=== PATIENT | male | born 1970 | race Caucasian/White ===

== ENCOUNTER 2017-06-27 12:10 | Day surgery (SDC) | payer OTHER ==
[2017-06-27] VITALS (15 sets, daily range): BP systolic 129–186; BP diastolic 78–108; PULSE 56–74; RESP 12–20; O2SAT 96–100
[~2017-06-27] VITALS: Ht 193 cm; Wt 125.2 kg
--- NOTE | 2017-06-27 12:16 | ED.REPORT ---
HPI-Abd Pain M 40 and Over Date of Service Jun 27, 2017 ED Provider: History of Present Illness: pain in umbilicial hernia started this am, woke up and it was different, usually self reduces but not today. [place] [facility] [place] [facility], plans to return on Sunday, flying back. no nausea or vomiting. pain 7/10, normally no pain associated with hernia. hernia has been present for about 1.5 years. Has been working on losing weight. Lost over 100 lbs in the last year. Nursing Notes Stated Complaint: ABDOMINAL PAIN Chief Complaint: Male Abdominal Pain Nursing Notes Reviewed: Yes Allergies: Coded Allergies: No Known Allergies (Unverified , 06/27/17) No Active Prescriptions or Reported Meds General Time Seen by MD: 12:15 Chief Complaint Abdominal pain Hx Obtained From: Patient Sudden in Onset?: Yes Onset Occurred: 5 - 8 hours ago Symptom Duration: Since onset Severity: Current: Pain level 7 out of 10 Additional Notes: pain at site of umbilical hernia, hernia is not reducible, painful to touch, increased vascularity but no erthyma noted Past Medical History Past Medical History Reports: Hypertension, Denies: Asthma, Diabetes mellitus Past Surgical History knee Smoking History Former Smoker (quit in 2008) Social History Alcohol Use: Denies alcohol use Drug Use: Denies drug use Other Social History: Occupation lives in [facility]. 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 Initial Vital Signs Vital Signs (First) Date Time Temp Pulse Resp B/P Pulse Ox O2 Delivery O2 Flow Rate FiO2 06/27/17 12:13 36.5 58 18 100 Room Air 06/27/17 15:34 138/98 Head / Eyes: Atraumatic, Normocephalic, PERRL Skin: Warm, Dry, No cyanosis Psychiatric: Mood/affect normal, Behavior normal, Normal thought content General/Constitutional: Awake, Alert, No acute distress, Well appearing, Well developed, Well hydrated, Well nourished, Cooperative, Not toxic appearing Respiratory / Chest: Atraumatic, Breath sounds NL, Breath sounds = bilat, No respiratory distress, No rales, No rhonchi, No wheezing Cardiovascular: Heart rate NL, Regular rhythm, Heart sounds NL, No gallop, No murmurs, No rubs, Cap refill not delayed, Peripheral circulation NL tender at hernia site. pain increases with flexion of abd Back: Atraumatic, Inspection NL, Full range of motion, Painless range of motion Head / Eyes: Atraumatic, Normocephalic, PERRL, EOMI ENT: Atraumatic, Airway patent, Mucous membranes moist, Pharynx NL Interpretation & Diagnostics Lab Results Interpretation Result Diagram: 06/27/17 1258 06/27/17 1258 Test 06/27/17 12:58 06/27/17 13:15 White Blood Count 5.8th/mm3 (3.8-10.1) Red Blood Count 4.90mil/mm3 (4.40-5.80) Hemoglobin 14.1g/dL (13.8-17.2) Hematocrit 41.9% (41.0-50.0) Mean Corpuscular Volume 85.5fL (81-100) Mean Corpuscular Hemoglobin 28.8pg (27.0-35.0) Mean Corpuscular Hemoglobin Concent 33.7% (32.0-37.0) Red Cell Distribution Width 13.4% (12.3-15.4) Platelet Count 147bil/L (150-400) Neutrophils (%) (Auto) 60.3% (40-74) Lymphocytes (%) (Auto) 23.8% (14-46) Monocytes (%) (Auto) 9.5% (4-12) Eosinophils (%) (Auto) 5.7% (0-5) Basophils (%) (Auto) 0.5% (0-3) Sodium Level 141mEq/L (134-144) Potassium Level 4.1mEq/L (3.5-5.2) Chloride Level 102mEq/L (97-108) Carbon Dioxide Level 24mmol/L (18-29) Blood Urea Nitrogen 9mg/dL (6-24) Creatinine 0.77mg/dL (0.76-1.27) Estimat Glomerular Filtration Rate 116mL/min (>59) Glucose Level 109mg/dL (60-99) Lactic Acid Level 0.8mmol/L (0.4-2.0) Calcium Level 9.1mg/dL (8.5-10.1) Total Bilirubin 0.6mg/dL (0.0-1.2) Aspartate Amino Transf (AST/SGOT) 31U/L (0-50) Alanine Aminotransferase (ALT/SGPT) 32U/L (0-44) Alkaline Phosphatase 41U/L (25-150) Total Protein 6.3g/dL (6.4-8.4) Albumin 4.3g/dL (3.4-5.0) Urine Color Straw (YELLOW) Urine Appearance Hazy (CLEAR,HAZY) Urine pH 6.5 (5.0-8.0) Urine Specific [place] 1.005 (1.003-1.035) Urine Protein Negativemg/dL (NEG,TRACE) Urine Glucose (UA) Negativemg/dL (NEGATIVE) Urine Ketones Negativemg/dL (NEGATIVE) Urine Occult Blood Negative (NEGATIVE) Urine Nitrite Negative (NEGATIVE) Urine Bilirubin Negative (NEGATIVE) Urine Urobilinogen Normalmg/dL (NORMAL) Urine Leukocyte Esterase Negative (NEGATIVE) Urine RBC 0-2/hpf (0-2) Urine WBC 0-5/hpf (0-5) Urine Epithelial Cells Occasional/hpf (NONE-MOD) Urine Crystals None seen (NONE SEEN) Urine Bacteria None/hpf (NONE-FEW) Urine Hyaline Casts None/lpf (NONE) Urine Granular Casts None seen (NONE SEEN) Urine Waxy Casts None seen (NONE SEEN) Urine Red Blood Cell Casts None seen (NONE SEEN) Urine White Blood Cell Casts None seen (NONE SEEN) Urine Mucus None seen (None Seen) Urine Trichomonas None seen (NONE SEEN) Urine Yeast None (NONE SEEN) Urinalysis Comment None Urine Culture Reflexed Not indicated Lab Results Interpretation: urine is negative CT Abd / Pelvis Interpretation PROCEDURE: CT ABDOMEN AND PELVIS WITH CONTRAST ([id number]) INDICATIONS: 46 year-old male with abdominal pain and possible incarcerated hernia. TECHNIQUE: After the administration of intravenous contrast, 5 mm thick sections acquired from the diaphragm to the symphysis with the patient performing Valsalva maneuver. 5 mm coronal and sagittal reformats were acquired. For radiation dose reduction, the following was used: automated exposure control, adjustment of mA and/or kV according to patient size. COMPARISON: None. FINDINGS: Image quality: Excellent. ABDOMEN: Lung bases: Lung bases are clear. Heart size is normal. Solid organs: Liver and spleen are normal in size. 1.7 cm anterior right hepatic lobe simple cyst is present, as well as localized fatty infiltration along the falciform ligament. Gallbladder wall thickness is normal. Biliary system is non dilated. Pancreas enhances normally. No adrenal nodules. Kidneys demonstrate normal size, without hydronephrosis. 2.3 cm right renal parapelvic cyst is present. Peritoneum and bowel: Bowel loops demonstrate normal wall thickness and caliber. The appendix is normal. No free fluid or air. Nodes and vessels: No retroperitoneal or mesenteric adenopathy by size criteria. Aorta and inferior vena cava are normal in size. Miscellaneous: 6.5 x 5.5 cm fat-containing periumbilical ventral hernia is present, without inflammatory fat stranding to suggest strangulation. PELVIS: Genitourinary: Bladder wall thickness is normal. Prostate gland is normal in size. Miscellaneous: No inguinal hernias or adenopathy. Bones: No suspicious bony lesions. No vertebral body compression fractures. Bilateral L5 pars defects are present, with minimal L5-S1 spondylolisthesis. IMPRESSION: 1. 6.5 x 5.5 cm periumbilical ventral hernia contains only omental fat, without findings to suggest strangulation. 2. Bilateral L5 pars defects, with grade 1 L5-S1 spondylolisthesis. 3. 1.7 cm right hepatic lobe simple cyst, as well as 2.3 cm right renal parapelvic cyst. Dictated by: Adriano Alonzo M.D. on 06/27/2017 at 14:04 Approved by: Adriano Alonzo M.D. on 06/27/2017 at 14:13 Re-Eval/Medical Decision Med Decision/Clinical Course 46 year old male [place] [facility] [place], who is staying on [facility], presents for evualation of pain at hernia site. Hernia is tender to touch with increased vascularity. Unable to reduce hernia. Hernia self reduces after the administration of pain medication. Patient has a concern it may incerate again and he will be on [facility]. Desires surgery today. Discussed with Dr. Gregory, will attempt to get him on the schedule around 6 pm today. No sign of inceration after hernia reduced. No sign of appy. Discharge & Departure Primary Impression: Hernia, umbilical Obstruction and gangrene presence: without obstruction or gangrene Qualified Code: K42.9 - Umbilical hernia without obstruction or gangrene Disposition: ADMITTED TO HOSPITAL Vital Signs - All Vital Signs Date Time Temp Pulse Resp B/P Pulse Ox O2 Delivery O2 Flow Rate FiO2 06/27/17 15:34 74 18 138/98 97 Room Air 06/27/17 12:13 36.5 58 18 100 Room Air EDSupervising Provider for APC: Kane Gonzalez MD copies to: OTHER,PHYSICIAN Laura Bender Jun 27, 2017 12:16
[2017-06-27] MEDS ORDERED: Ondansetron 2 mg/mL 2 mL Inj IVPUSH ONE (12:30)
[2017-06-27] MEDS ORDERED: HYDROmorphone 0.5 mg/0.5 mL iSecure Syringe IVPUSH ONE (12:30)
[2017-06-27] MEDS ORDERED: 0.9% Sodium Chloride 1,000 ML IV ONE (12:30)
[2017-06-27 13:06] LABS: BASOPHILS % (AUTO) 0.5 % (0-3); EOSINOPHILS % (AUTO) 5.7 % (0-5); MONOCYTES % (AUTO) 9.5 % (4-12); Mean Corpuscular Hemoglobin 28.8 pg (27.0-35.0); Mean Corpuscular Volume 85.5 fL (81-100); NEUTROPHILS % (AUTO) 60.3 % (40-74); Platelet Count 147 bil/L (150-400)
[2017-06-27 13:36] LABS: APPEARANCE,URINE HAZY (CLEAR,HAZY); COLOR,URINE STRAW (YELLOW)
[2017-06-27 13:37] LABS: OCCULT BLOOD,URINE NEGATIVE (NEGATIVE); PH,URINE 6.5 (5.0-8.0); UROBILINOGEN,URINE NORMAL (NORMAL)
[2017-06-27] MEDS ORDERED: Remifentanil 1 mg/3 mL Inj ONE (15:46)
[2017-06-27] MEDS ORDERED: Glycopyrrolate 0.2 MG/ML 1mL Inj ONE (15:46)
[2017-06-27] MEDS ORDERED: Neostigmine 1 mg/mL 10 mL Inj ONE (15:46)
[2017-06-27] MEDS ORDERED: fentaNYL-PF 50 mCg/mL 2 mL Inj ONE (15:46)
[2017-06-27] MEDS ORDERED: Rocuronium 10 mg/mL 5 mL Inj ONE (15:46)
[2017-06-27] MEDS ORDERED: Ondansetron 2 mg/mL 2 mL Inj ONE (15:46)
[2017-06-27] MEDS ORDERED: Dexamethasone 4 mg/mL Inj ONE (15:46)
[2017-06-27] MEDS ORDERED: HYDROmorphone 1 mg/mL Inj ONE (15:46)
[2017-06-27] MEDS ORDERED: Propofol 10,000 mCg/mL 20 mL Inj ONE (15:46)
[2017-06-27] MEDS ORDERED: MetoCLOpramide 5 mg/mL 2 mL Inj ONE (15:46)
--- NOTE | 2017-06-27 16:26 | DRSVH ---
PROCEDURE: CT ABDOMEN AND PELVIS WITH CONTRAST ([id number]) INDICATIONS: 46 year-old male with abdominal pain and possible incarcerated hernia. TECHNIQUE: After the administration of intravenous contrast, 5 mm thick sections acquired from the diaphragm to the symphysis with the patient performing Valsalva maneuver. 5 mm coronal and sagittal reformats wer e acquired. For radiation dose reduction, the following was used: automated exposure control, adjus tment of mA and/or kV according to patient size. COMPARISON: None. FINDINGS: Image quality: Excellent. ABDOMEN: Lung bases: Lung bases are clear. Heart size is normal. Solid organs: Liver and spleen are normal in size. 1.7 cm anterior right hepatic lobe simple cyst i s present, as well as localized fatty infiltration along the falciform ligament. Gallbladder wall thi ckness is normal. Biliary system is non dilated. Pancreas enhances normally. No adrenal nodules. Kidneys demonstrate normal size, without hydronephrosis. 2.3 cm right renal parapelvic cyst is presen t. Peritoneum and bowel: Bowel loops demonstrate normal wall thickness and caliber. The appendix is no rmal. No free fluid or air. Nodes and vessels: No retroperitoneal or mesenteric adenopathy by size criteria. Aorta and inferior vena cava are normal in size. Miscellaneous: 6.5 x 5.5 cm fat-containing periumbilical ventral hernia is present, without inflammat ory fat stranding to suggest strangulation. PELVIS: Genitourinary: Bladder wall thickness is normal. Prostate gland is normal in size. Miscellaneous: No inguinal hernias or adenopathy. Bones: No suspicious bony lesions. No vertebral body compression fractures. Bilateral L5 pars defe cts are present, with minimal L5-S1 spondylolisthesis. IMPRESSION: 1. 6.5 x 5.5 cm periumbilical ventral hernia contains only omental fat, without findings to suggest s trangulation. 2. Bilateral L5 pars defects, with grade 1 L5-S1 spondylolisthesis. 3. 1.7 cm right hepatic lobe simple cyst, as well as 2.3 cm right renal parapelvic cyst. Dictated by: Adriano Alonzo M.D. on 06/27/2017 at 14:04 Approved by: Adriano Alonzo M.D. on 06/27/2017 at 14:13
[2017-06-27] MEDS ORDERED: Alum-Mag Hydrox-Simeth 30 mL Suspension PO PRN (16:40)
[2017-06-27] MEDS ORDERED: Ondansetron 2 mg/mL 2 mL Inj IVPUSH PRN ×3 (16:40→20:30)
[2017-06-27] MEDS ORDERED: HYDROmorphone 1 mg/mL Inj IVPUSH PRN ×2 (16:45→19:15)
[2017-06-27] MEDS: Dextrose 5% Lactated Ringer's 1,000 ML IV SCH (16:45)
--- NOTE | 2017-06-27 16:55 | PCM.HPSURG ---
Subjective Date of Service: Jun 27, 2017 Referring Provider: Admitting Physician: Stephy Gregory MD Primary Care Physician: Nopcp Attending Physician: Stephy Gregory MD Chief Complaint Umbilical hernia History of Present Illness Mr. Vuong is a 46 year old male who is otherwise healthy and presents with concern for a strangulated umbilical hernia. The patient reports he first noticed a bulge just superior to his umbilicus after experiencing a popping sensation during exercise 18 months ago. His family practitioner diagnosed him with a hernia and he has elected to not have it surgically repaired because it has been argely asymptomatic. The hernia has grown somewhat in size over time, but has only caused pain twice -- both of these episodes were self-limited and resolved quickly by laying in a supine position for less than 20 minutes. Today , the patient awoke with soreness at his hernia site, which is not usual for him. The soreness gave way to gradually worsening sharp pain. Additionally, he noticed the hernia became larger, very firm, and tender. He was unable to reduce the hernia with manual palpation or laying supine. Therefore, he sought medical treatment. He was seen at an outside facility on [facility], where the hernia could not be reduced by the medical team. He was therefore transferred to [facility] in anticipation of requiring surgical intervention. However , after being given dilaudid, he was able to fall asleep and the hernia spontaneously reduced. He states that he now feels back to normal, as if there hadn't even been any issue today, and denying any current abdominal pain. He has had no associated nausea, vomiting, fevers, chills, skin changes, or difficulty urinating today. He had a normal bowel movement early this morning but has not passed any flatus since. Of note, the patient is visiting family on [facility]. He is from [place], [place]. Allergy Allergies: Coded Allergies: No Known Allergies (Unverified , 06/27/17) Medications Home medications No home medications Past Surgical History Operations: Left knee arthroscopy Social History Occupation: network security consultant Hx Alcohol Use: Yes (Rarely) Hx Substance Use: No Hx Tobacco Use: Yes (Former smoker) PMH HEENT History History of ENT Problems?: No Cardiovascular History History of Heart Problems?: No Respiratory History of Respiratory Problem: No Neurological History Hx Neurologic Problems?: No Gastrointestinal History HX of GI Problems?: No Genitourinary History Hx of Gu Problems?: No Female/Male History Reproductive History Male: Denies: Prostate Problems Scrotal Mass Musculoskeletal History Hx Musculoskeletal Problems?: No Psycho Social History Hx of Psycho/Social Problems?: No Other History Hx Any Other Health Problems?: No Other History: Denies:: Cancer Hospitalization Thyroid Disease Diabetes: No Social History Hx Alcohol Use: Yes (Rarely)Hx Substance Use: No Smoking Status: Former Smoker Living Arrangement: with Family Family History Family History: Reviewed and non-contributory to the current problem H&P Surgical Exam Exam General: Alert, Oriented X3, Cooperative, No Acute Distress Neck: Supple Lungs: Clear to Auscultation, Normal Air Movement Heart: Exam Unremarkable, Regular Rate/Rhythm, Normal S1, Normal S2, No Murmurs /Rubs/Gallops Abdomen: Other (Supraumbilical hernia is easily reducible, soft, nontender, with likely some incarcerated omental/pre-peritoneal fat palpated. Abdomen is otherwise soft, nontender, and nondistended. No identifiable incisional scars.) Extremities: Warm Neuro: Grossly Neurologically Intact Diagnostics: 1. 6.5 x 5.5 cm periumbilical ventral hernia contains only omental fat, without findings to suggest strangulation. Assessment & Plan Assessment 46 year old male with an umbilical hernia which was incarcerated/strangulated today and has since spontaneously reduced. He is hemodynamically stable, without a leukocytosis or elevated lactic acid, and his abdominal exam is benign. Pain Management: The patient and I have discussed then natural history of umbilical hernias. Given his severe symptoms today, there is concern that his bowel may have been strangulated for a short time. Therefore, I have recommended that we proceed to the operating room for a diagnostic laparoscopy and repair of his umbilical hernia with mesh. This will reassure us that there is no compromised bowel and will eliminate the risk of a similar event happening while traveling back to [place]. The technical and convalescent aspects of the procedure, as well as the risks, benefits, and alternatives were discussed. He understands the risk of bleeding, infection, and damage to adjacent structures and has provided his consent to proceed to the OR. We will work toward a convenient time. In the interim he will remain NPO on [facility]. Case discussed with Dr. Gregory. Attending Statement: I examined and interviewed this patient and agree with the note as dictated above. We discussed the risks and benefits of the operation, including risks of recurrence, infection, bleeding, and injury to surrounding structures. We also discussed the possibility that mesh may not be used depending on the appearance of intra-abdominal viscera. The patient understands and elects to proceed. Anders Peacock MD Jun 27, 2017 16:55 Stephy Gregory MD Jun 27, 2017 20:28
[2017-06-27] MEDS: Lactated Ringer's 1,000 ML IV SCH ×3 (18:30→21:10)
[2017-06-27] MEDS ORDERED: Lactated Ringer's 500 ML IV PRN (19:14)
--- NOTE | 2017-06-27 19:14 | NUR ---
Arrival to 1031/transport to OR Pt transported to room 1031 at 1700, VSS, no complaints of pain or nausea, steady transfer to bed from independently. Consent signed in OR and plan to have hernia repair this evening. OR transport at 1820. All clothing removed and in gown and pt voided prior to departure. Pt denies having any questions or concerns at this time.
[2017-06-27] MEDS ORDERED: Phenylephrine 10,000 mCg/mL Inj IVPUSH PRN (19:15)
[2017-06-27] MEDS ORDERED: EPHEDrine Sulfate 50 mg/mL Inj IVPUSH PRN (19:15)
[2017-06-27] MEDS ORDERED: Atropine 0.4 mg/mL Inj IVPUSH PRN (19:15)
[2017-06-27] MEDS ORDERED: Labetalol 5 mg/mL 20 mL Inj IV PRN (19:15)
[2017-06-27] MEDS ORDERED: MetoCLOpramide 5 mg/mL 2 mL Inj IVPUSH PRN ×2 (19:15→20:30)
--- NOTE | 2017-06-27 19:17 | PCM.HPANE ---
Patient Data Date of Service: Jun 27, 2017 (183) Surgeon Admitting Provider:Stephy Gregory MD Attending Provider:Stephy Gregory MD Primary Care Physician:[place] Other Provider: Reason for Visit Incarcerated Hernia Ht/WT & BMI Height (Feet): 6 Height (Inches): 4.00 Weight (Kilograms): 124.700 Body Mass Index 33.48 Allergies Coded Allergies: No Known Allergies (Unverified , 06/27/17) Past Anesthesia History Anesthesia History: Denies:: Abnormal Airway, Anesthesia Reactions, Difficult Intubation, Fam Anesthesia Reaction, Fam Malignant Hypertherm, Malignant Hyperthermia Diabetes History Hx Diabetes?: No MRSA MRSA: No Medications No Active Prescriptions or Reported Meds History History of ENT Problems?: No HEENT History: Denies:: Abnormal Airway Cataracts Difficult Intubation Dysphagia Glaucoma Hearing Problem Sinus Problem TMJ Denture Type: None Teeth Condition: Within Normal Limits Hx of Heart Problems?: No Cardiovascular History: Denies:: AICD Abdominal Aortic Aneurism Atrial Fibrillation Cardiac Surgery Chest Pain Congestive Heart Failure Coronary Artery Disease Edema Heart Murmur Hypertension Irregular Heartbeat Pacemaker Peripheral Vascular Rheumatic Fever Thrombophlebitis Valvular Heart Disease Hx of Respiratory Problem?: No Respiratory History: Denies:: Asthma COPD Chest Surgery Cough Dyspnea Emphysema Hemoptysis Oxygen Administration Pneumonia Pulmonary Embolism Tuberculosis Use of C-PAP Machine Use of Inhalers / NEBS Hx Neurologic Problems?: No Neurological History: Denies:: Alzheimer's Disease CVA Dementia Dizziness Headaches Multiple Sclerosis Parkinson's Disease Peripheral Neuropathy Seizures TIA Hx of GI Problems?: No Gastrointestinal History: Denies:: Cirrhosis Diverticulitis Gall Bladder Disease Gastroesphageal Reflux Gastrointestinal Bleeding Heartburn Hepatitis Hiatal Hernia Liver Disease Rectal Bleeding Hx of Problems?: No Genitourinary History: Denies:: HX of Hemodialysis Kidney Stones Urinary Tract Infection HX of Peritoneal Dialysis: No Male Hx: Denies:: Prostate Problems Scrotal Mass Testicular Surgery Skin History: Denies:: History Skin Disorders? Pressure Ulcers Hx Musculoskeletal Problems?: No Musculoskeletal History: Denies:: Back Injury Degenerative Joint Fibromyalgia Joint Replacement Musculoskeletal Trauma Myasthenia Gravis Osteoarthritis Rheumatoid Arthritis Systemic Lupus Hx of Psycho/Social Problems?: No Psycho Social History: Denies:: Anxiety Bipolar Disorder Hx Depression Suicide Attempt Hx Surgeries?: Yes (lt.knee sry) Hx Any Other Health Problems?: No Other History: Denies:: Cancer Endocrine Disease Hospitalization Thyroid Disease History Blood Transfusions: Positive for:: Accept Blood Products? Denies:: Blood Transfuse Reaction Blood Transfusions Hx Diabetes: No Occupation: security sales consultant Hx Alcohol Use: Yes (Rarely)Hx Substance Use: No Smoking Status: Former Smoker Stop/Bang Treated for Sleep Apnea?: No Do You Have a CPAP Machine?: No S-Snoring: Do You Snore Loudly: No T-Tired: feel tired, fatigued: No O-Obsered: Observed not breath: No P-Blood Pressure: treated: No B- Body Mass Index > 35 kg/m2: No A- Age over 50: No N- Neck Large Circumference: No G- Gender Male: Yes ENEDINA Total Score: 1 Risk Assessment Category Category 1A: Patient has history of documented sleep apnea, and HAS NOT received any narcotic, sedative or anesthesia administration during this stay. Category 1B: Patient has history of documented sleep apnea, and HAS received any narcotic , sedative or anesthesia administration during this stay Category 2: Patient has SUSPECTED Obstructive Sleep Apnea, and HAS received any narcotic , sedative or anesthesia administration during this stay. Category 3: Patient has SUSPECTED Obstructive Sleep Apnea and HAS NOT received narcotic, sedative or anesthesia administration during this stay. Category 4: Outpatient in Procedural Areas with known sleep apnea or who screen positive for High Risk via the STOP/BANG questionnaire. Exam Exam Vital Signs Vital Signs Date Time Temp Pulse Resp B/P Pulse Ox O2 Delivery O2 Flow Rate FiO2 06/27/17 17:07 36.6 59 16 129/78 97 Room Air 06/27/17 15:34 74 18 138/98 97 Room Air 06/27/17 12:13 36.5 58 18 100 Room Air General Appearance: Alert, Oriented X3, Cooperative, No Acute Distress HEENT/AIRWAY: MP 2, Neck Movement (from), Mouth Opening (3 fbmo) Lungs: Clear to Auscultation, Normal Air Movement Heart: Exam Unremarkable, Regular Rate/Rhythm, Normal S1, Normal S2, No Murmurs /Rubs/Gallops Meds/Labs/Diagnostics Admission Meds Current Medications Sodium Chloride (Normal Saline) 1,000 ml @ 0 mls/hr Q0M ONCE IV Last administered on 06/27/17t 12:55; Start 06/27/17 at 12:30; Stop 06/27/17 at 12:31 ; Status DC Hydromorphone HCl (Dilaudid Inj) 0.5 mg ONCE ONCE IVPUSH Last administered on 06/27/17 12:57; Start 06/27/17 at 12:30; Stop 06/27/17 at 12:31; Status DC Ondansetron HCl (Zofran Inj) 4 mg ONCE ONCE IVPUSH Last administered on 12:55; Start 06/27/17 at 12:30; Stop 06/27/17 at 12:31; Status DC Labs Test 06/27/17 12:58 06/27/17 13:15 White Blood Count 5.8th/mm3 (3.8-10.1) Red Blood Count 4.90mil/mm3 (4.40-5.80) Hemoglobin 14.1g/dL (13.8-17.2) Hematocrit 41.9% (41.0-50.0) Mean Corpuscular Volume 85.5fL (81-100) Mean Corpuscular Hemoglobin 28.8pg (27.0-35.0) Mean Corpuscular Hemoglobin Concent 33.7% (32.0-37.0) Red Cell Distribution Width 13.4% (12.3-15.4) Platelet Count 147bil/L (150-400) Neutrophils (%) (Auto) 60.3% (40-74) Lymphocytes (%) (Auto) 23.8% (14-46) Monocytes (%) (Auto) 9.5% (4-12) Eosinophils (%) (Auto) 5.7% (0-5) Basophils (%) (Auto) 0.5% (0-3) Sodium Level 141mEq/L (134-144) Potassium Level 4.1mEq/L (3.5-5.2) Chloride Level 102mEq/L (97-108) Carbon Dioxide Level 24mmol/L (18-29) Blood Urea Nitrogen 9mg/dL (6-24) Creatinine 0.77mg/dL (0.76-1.27) Estimat Glomerular Filtration Rate 116mL/min (>59) Glucose Level 109mg/dL (60-99) Lactic Acid Level 0.8mmol/L (0.4-2.0) Calcium Level 9.1mg/dL (8.5-10.1) Total Bilirubin 0.6mg/dL (0.0-1.2) Aspartate Amino Transf (AST/SGOT) 31U/L (0-50) Alanine Aminotransferase (ALT/SGPT) 32U/L (0-44) Alkaline Phosphatase 41U/L (25-150) Total Protein 6.3g/dL (6.4-8.4) Albumin 4.3g/dL (3.4-5.0) Urine Color Straw (YELLOW) Urine Appearance Hazy (CLEAR,HAZY) Urine pH 6.5 (5.0-8.0) Urine Specific [place] 1.005 (1.003-1.035) Urine Protein Negativemg/dL (NEG,TRACE) Urine Glucose (UA) Negativemg/dL (NEGATIVE) Urine Ketones Negativemg/dL (NEGATIVE) Urine Occult Blood Negative (NEGATIVE) Urine Nitrite Negative (NEGATIVE) Urine Bilirubin Negative (NEGATIVE) Urine Urobilinogen Normalmg/dL (NORMAL) Urine Leukocyte Esterase Negative (NEGATIVE) Urine RBC 0-2/hpf (0-2) Urine WBC 0-5/hpf (0-5) Urine Epithelial Cells Occasional/hpf (NONE-MOD) Urine Crystals None seen (NONE SEEN) Urine Bacteria None/hpf (NONE-FEW) Urine Hyaline Casts None/lpf (NONE) Urine Granular Casts None seen (NONE SEEN) Urine Waxy Casts None seen (NONE SEEN) Urine Red Blood Cell Casts None seen (NONE SEEN) Urine White Blood Cell Casts None seen (NONE SEEN) Urine Mucus None seen (None Seen) Urine Trichomonas None seen (NONE SEEN) Urine Yeast None (NONE SEEN) Urinalysis Comment None Urine Culture Reflexed Not indicated Plan Impression Patient chart reviewed, patient interviewed and anesthestic plan with risks, benefits, and alternatives discussed, and informed consent obtained. NPO per Anesth. Guidelines: Yes ASA Physical Status: ASA2 Mod Systemic Disease Anesthetic Plan: GA Bene/Risks/Altern/Consents: Yes HP Complete Prior to Induction: Yes Vasile Galvez MD Jun 27, 2017 18:50
[2017-06-27] MEDS ORDERED: Bupivacaine-MPF 0.5% 30 mL Inj INFILTRATE ONE (19:26)
--- NOTE | 2017-06-27 20:27 | PCM.SURGOP ---
Surgical Operative Report Date of Service: Jun 27, 2017 Pre Operative Diagnosis Umbilical hernia with recent history of incarceration Post Operative Diagnosis Umbilical hernia with recent history of incarceration Procedure: 1. Laparoscopic umbilical hernia repair with mesh 2. Umbilicoplasty Surgeon and Senior Manager Quality Assurance: Surgeon: Stephy Gregory MD Assistants: Pam Archibald MS3 Indication for Procedure This is a 46-year-old male who has had an umbilical hernia for approximately 1.5 years. He lives in [facility], and was on vacation visiting family on [facility] when his hernia became incarcerated. He presented to the emergency department with a firm very tender lump at the umbilicus. After institution of pain medications, it was reduced in the emergency department. His abdominal pain significantly improved thereafter. Because he would be returning to the [place] and subsequently flying back to [place], he was very concerned that it would become incarcerated again during his travels. Therefore immediate repair was offered. Findings: Umbilical hernia with a 3 cm fascial defect. There was no incarcerated viscera or omentum. Procedure Details The patient was brought to the operating room and placed in supine position. General endotracheal anesthesia was smoothly induced. Antibiotics were infused. A warming blanket and SCDs were placed. The operative field was prepped and draped in sterile fashion. A Mike had been placed. A pause was performed to confirm the correct patient, procedure, site, and side. A Veress needle was placed in the left upper quadrant of the abdomen was insufflated. An Optiview trocar was then used with an 11 mm port to enter the abdomen. Two additional 5 mm ports are placed in the left midabdomen and left lower quadrant. The umbilical hernia defect was visualized and found to contain no viscera or incarcerated omentum. The defect was measured and found to be 3 cm in diameter. Five 0 PDS stitches were used laparoscopically using a Olu-Negrita device to close the defect. Once the defects were closed, a piece of mesh was fashioned to place deep to them. An 11cm circular piece of Ventralight ST dual sided mesh with the Echo positioning system was chosen. An OptiFix tacking device with absorbable tacks was used to create the outer row of tacks at 1 cm intervals. The echo balloon was removed. An inner row of tacks was then placed, 3 of which were in the midline. The ports were then removed and the abdomen was desufflated. Attention was turned to umbilical plasty. A 1 cm circular piece of excess skin from the center of the umbilicus was removed. The hernia sac and umbilical preperitoneal fat was removed. The skin at the site of the umbilicus was sutured to the anterior aspect of the fascia using interrupted 3-0 Vicryl stitches. Skin was then closed with running 4-0 Monocryl. Half percent Marcaine with epinephrine was infused at all port sites and at the umbilicus. Skin was closed with 4-0 Monocryl. Sterile dressings were placed. All sponge, needle, and instrument counts were correct at the end of the case. The patient was awakened from general anesthesia and taken to the postoperative care unit in good condition. Complications There were no periprocedural complications identified. Surgical Specimen Removed: Yes Specimen sent to Pathology: No Surgical Specimen description: Preperitoneal fat and hernia sac Anesthetic Plan: GA Grafts, Implants: Implants-See Implant Record Output, Estimated Blood Loss: 2 (ml) Blood Administration during broussard: No Stephy Gregory MD Jun 27, 2017 20:27
--- NOTE | 2017-06-27 20:38 | PCM.ANEP1 ---
Post Anesthesia PACU Phase 1 Assessment Vital Signs Vital Signs Date Time Temp Pulse Resp B/P Pulse Ox O2 Delivery O2 Flow Rate FiO2 06/27/17 17:07 36.6 59 16 129/78 97 Room Air 06/27/17 15:34 74 18 138/98 97 Room Air Anesthetic Administered: GA Level of Alertness: Awake, talking PORRAS's with Equal Strength: Yes Pain: Yes (GETTING PAIN MEDS IN RECOVERY) Nausea or Vomiting: No CV Function & Hydration Stable: Yes Airway Device: Oxygen Delivery: Room Air Lungs: Clear to Auscultation, Normal Air Movement Dermatome Level: Full Sensation PACU Phase 2 Assessment Complications: No Follow up Care: N/A Patient Instructions Provided: N/A Vasile Galvez MD Jun 27, 2017 20:38
[2017-06-27] MEDS ORDERED: Acetaminophen IV 1,000 MG in IV Premix 1 EACH IV ONE (20:40)
[2017-06-27] MEDS: fentaNYL-PF 50 mCg/mL 2 mL Inj IVPUSH PRN ×2 (20:50→21:02)
[2017-06-28 00:36] VITALS: BP 126/66; PULSE 65; RESP 16; O2SAT 96
[2017-06-28] MEDS: oxyCODONE-Acetamin 5-325 mg Tablet PO PRN ×3 (02:22→10:23)
--- NOTE | 2017-06-28 03:53 | NUR ---
Transfer from OR Patient arrived on unit alert and oriented and able to make needs known. Denied pain nausea and abdominal discomfort. Lap sites clean dry and intact. Patient educated on pain management, and splinting when coughing. c/o dry mouth given Popsicle tolerating diet well. Will continue to monitor.
[2017-06-28] MEDS: Dextrose 5% Lactated Ringer's 1,000 ML IV SCH (04:58)
[2017-06-28 05:00] VITALS: BP 122/66; PULSE 63; RESP 16; O2SAT 97
--- NOTE | 2017-06-28 07:36 | PCM.DISURG ---
Surgical Discharge Instruction Date of Service Jun 28, 2017 Dates of Hospitalization Date of Hospital Admission Jun 27, 2017 at 15:45 Providers Admitting Physician: Stephy Gregory MD Primary Care Physician: Nopcp Attending Physician: Stephy Gregory MD Discharge Diagnosis Post Operative diagnosis Umbilical hernia with recent history of incarceration Diet Discharge Diet: No restrictions Activity Discharge Activity-General: No lifting >10 pounds for 4-6 weeks Dressing and Incisional Care Dressing Care: Remove outer dressing after 24 hrs, Other (remove steri strips in 2 weeks) Hygiene: May shower Follow Up Plan Follow Up Plan Follow up if you are having problems with a general surgeon. No need for follow up if things are going well. Call your provider for: Fever, Chills, Shortness of breath, Increasing abdominal pain, Wound redness, Discharge @ incision, pus discharge Stephy Gregory MD Jun 28, 2017 07:36
[2017-06-28] MEDS ORDERED: OXYC5CAP4 PO (07:37)
[2017-06-28] MEDS ORDERED: POLY17PO6 PO (07:37)
--- NOTE | 2017-06-28 08:07 | PCM.DC.SUR ---
Discharge Summary Date of Service: Jun 28, 2017 Date of Hospital Admission: Jun 27, 2017 at 15:45 Date of Operation(s): 06/27/2017 Date of Discharge: 06/28/2017 Diagnosis at Time of Discharge Primary diagnoses: Umbilical hernia with recent history of incarceration Other chronic conditions: Former cigarette smoker Problems: Operation 1. Laparoscopic umbilical hernia repair with mesh 2. Umbilicoplasty Brief History and Physical: This is a 46-year-old male who has had an umbilical hernia for approximately 1.5 years. He lives in [facility], and was on vacation visiting family on [facility] when his hernia became incarcerated. He presented to the emergency department with a firm very tender lump at the umbilicus. After institution of pain medications, it was reduced in the emergency department. His abdominal pain significantly improved thereafter. Because he would be returning to the [place] and subsequently flying back to [place], he was very concerned that it would become incarcerated again during his travels. Therefore immediate repair was offered. Consultants: None Hospital Course: The patient was admitted and underwent the above-mentioned operations without complication. He was stable for discharge the following morning. Pathology: None Disposition: The patient was discharged home on his first postsurgical morning. Follow-up Plan: He will follow-up with a general surgeon at his home in [place] as needed. Polyethylene Glycol 3350 (Miralax) 17 Gm Powd.pack 17 GM PO DAILY PRN PRN For Constipation oxyCODONE (oxyCODONE) 5 Mg Capsule 5-10 MG PO Q4H PRN PRN For Pain Gavino Martinez PA-C Jun 28, 2017 08:07
[2017-06-28 08:52] VITALS: BP 147/68; PULSE 71; RESP 18; O2SAT 98
[2017-06-28 08:52] LABS: BASOPHILS % (AUTO) 0.2 % (0-3); EOSINOPHILS % (AUTO) 0.2 % (0-5); MONOCYTES % (AUTO) 6.3 % (4-12); Mean Corpuscular Hemoglobin 28.4 pg (27.0-35.0); Mean Corpuscular Volume 87.5 fL (81-100); NEUTROPHILS % (AUTO) 82.1 % (40-74); Platelet Count 152 bil/L (150-400)
--- NOTE | 2017-06-28 08:53 | NUR ---
Social Work- Brief Note/Discharge Data: EMR reviewed. Pt is a 46 year old male admitted for incarcerated hernia per H&P. Pt's insurance is [employer]. Pt's PCP is in [place], [place]. Pt to d/c today, d/c orders are active. SW met with pt at bedside regarding d/c plan, SW role explained. Pt's capacity for self-care assessed. Pt has a family home on [facility] where he is spending the summer with his family. Pt is originally from [place], [place]. Pt is independent with ADLs and self-care. Pt declined DPOA information. Pt to d/c back to [facility] via private pay taxi and then walk on the [employer] to [place] on [place]. Pt declined any assistance with ferry transport or taxi coordination. SW wrote phone number and plan on whiteboard. Pt agreeable to plan. No additional needs. Assessment: Pt who is independent with ADLs and self-care Plan: Pt to d/c back to [facility] via private pay taxi and then walk on the [employer] to [place] on [place]. No d/c needs identified. BENTLEY Oliver
--- NOTE | 2017-06-28 11:40 | NUR ---
Discharge Patient discharged home. Patient given verbal and written home care instructions and agreed to understanding them. Patient was given priority [facility] boarding pass as has to get back to [facility] where he was visiting. [place] and will return home on Sunday. Patient instructed to follow up with Dr at home if any problems should occur. Prescriptions given and discussed. Patient left with his belongings . Patient was calling a cab to take him to [facility].
== END 2017-06-28 11:04 | disposition home or self-care (01) ==
LOC: EDBD 12:10 → SED 12:10 → OSC 15:45 → UNDOADMOB 15:45 → SAS 15:45 → SED 16:45 → UNDODISOB 06-28 11:04 → SAS 06-28 11:04
PROVIDERS: ATTEND Registered Nurse
DX: K42.9 Umbilical hernia without obstruction or gangrene (principal); I10 Essential (primary) hypertension; Z87.891 Personal history of nicotine dependence
CPT/HCPCS: 15839; 36415; 49652; 74177; 80048; 80053; 81000; 83605; 85025; 96374; 96375; 99285; C1781; J0131; J0690; J1100; J1170; J1885; J2250; J2405; J2704; J2710; J2765; J3010; J7030; J7120; Q9967